=== PATIENT | female | born 1940 | race Caucasian/White ===

== ENCOUNTER 2016-07-15 08:45 | Outpatient (RCR) | payer MEDICARE ==
--- NOTE | 2016-07-02 14:33 | PT/OT/ST INITIAL EVALUATION ---
Department of Health and Human Services Form Approved [facility] Care Financing Administration OMB No. [id number] PLAN OF CARE/ASSESSMENT FOR OUTPATIENT REHABILITATION (Complete for Initial Claims Only) 1. LAST NAME Dave FIRST NAME Katya Vazquez 2. ACC # [id number] 3. HICN [id number] 4. TYPE: X PT 5. REFERRING PHYSICIAN 6. PRIMARY DX 7. SECONDARY DX 8. ONSET DATE 2-1/2 weeks ago 9. REFERRAL DATE 06/26/2016 10. SOC. DATE/TIME 06/30/2016 09:41 11. PRIOR LEVEL OF FUNCTION; PERTINENT HISTORY (Prior therapy results, reason for referral.) S: Prior to today's treatment, the patient did give consent to the evaluation and treatment this date. The patient is a 76-year-old female who began experiencing a nontraumatic onset of left scapular and upper back pain approximately 2-1/2 weeks ago. The patient notes the pain is constant, but is aggravated by sitting, looking down, especially when sitting at her computer, as well as standing. The patient does have difficulty being able to sleep secondary to this issue and staying asleep once she has been able to fall asleep. The patient has had issues with similar pain on her right side, but it is typically resolved by a massage. This issue has been addressed with some massage and use of heat, but has not resolved the issue at this time. The patient notes no numbness or tingling associated with this issue, but pain level is a 4/10. 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 She was participating in a daily walking program. She does also enjoy reading and sewing. Current level of function: The patient was recently seen in therapy for left trochanteric bursitis and that had limited her walking program. She is also limited in her sitting tolerance and ability to sit at the computer secondary to her scapular pain. Past medical history: Includes arthritis, atrial fibrillation, hypertension, and thyroid issues, as well as bilateral knee replacements. Medication list: The patient is taking ASA, Tylenol as needed, spironolactone, Metoprolol, Pantoprazole, atorvastatin, and cimetidine and fluticasone. Patient's goal: The patient's goal for physical therapy is to have no pain and improved flexibility and strength. 12. INITIAL ASSESSMENT/SAFETY PRECAUTIONS/MEDICAL COMPLICATIONS (Level of function at start of care. Be specific, use objective measures, list problems.) O: APPEARANCE AND OBSERVATION: Observation of the patient's posture reveals mild forward head positioning, decreased thoracic kyphosis and cervical lordosis. The patient demonstrates significant scapular winging and medial tilting with shoulder internal rotation and scapular abduction noted with upright posture. PALPATION: The patient has tenderness and significant muscle tightness with palpation of the bilateral mid to upper thoracic paraspinals, and cervical paraspinals, as well as upper trapezii, greatest on the left. She also has significant tenderness to palpation of the posterior ribs 6 and 7 on the left side. RANGE OF MOTION AND MOBILITY: The patient demonstrates hypomobility throughout the T4 throughout T10 segments. Right cervical rotation is 60 degrees, left is 49 degrees with tension noted in the thoracic musculature. Right cervical side bending 18 degrees, left 15 degrees. STRENGTH: Bilateral shoulder flexion, abduction, and internal rotation strength are 5/5, bilateral external rotation strength 4/5, bilateral rhomboid strength 3+/5, bilateral trapezii strength 3+/5. TODAY'S TREATMENT: Today's treatment consisted of initiating muscle energy technique to improve placement of left ribs 6 and 7, manual therapy to address muscle tightness and hypomobility throughout the thoracic spine. The PT also initiated the patient on upper back strengthening and cervical and thoracic spine stretching program and she was issued a written home exercise program. The patient was also educated by this PT on the current findings, as well as the plan for treatment and she was agreeable to this treatment plan. 13. 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 The patient demonstrates mild shoulder and significant upper back muscular weakness, as well as hypomobility throughout the thoracic spine and decreased range of motion in the cervical spine. PROGNOSIS: The patient would benefit from physical therapy and does have a good therapy outcome with regular attendance and compliance with her home exercise program. FUNCTIONAL LIMITATION: The patient does have a 26% disability rating on the Modified Oswestry pain disability questionnaire which was for modified for the thoracic spine. SHORT TERM GOALS X2 WEEKS: 1. The patient will report a 50% decrease in left scapular and thoracic spine pain. 2. The patient will improve left cervical rotation to be equal to the right. 3. The patient will improve bilateral shoulder external rotation strength to be 5/5 and bilateral rhomboid and lower trapezius strength to be a minimum of 4/5 to improve stabilization and support to the upper back and scapula. 4. The patient will be Independent and compliant with her home exercise program. 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 The patient will report being able to return to a walking program without being limited due to scapular pain. 2. The patient will have normalized mobility throughout the thoracic spine. 3. The patient will improve her modified Oswestry pain disability questionnaire by a minimum of 10%. As stated prior, the diagnosis, prognosis, risks and expected outcome were discussed with the patient and she is agreeable with to today's plan of care. PLAN: Plan to see this patient 3 times per week for 4 week. Therapeutic interventions will include modalities if needed to address pain and muscle tightness, therapeutic exercise with emphasis on stretching, stabilization and strengthening exercises, neuromuscular reeducation, manual therapy to improve muscle mobility and fine mobility, and advancement of a home exercise program. Therapeutic activities including functional training with body mechanics will also be included. Thank you for the referral of this patient. 14. FUNCTIONAL LEVEL (End of claim period) 15. PHYSICIAN SIGNATURE ? ON FILE OR ENTER HERE: 16. DATE: I certify the need for these services furnished under this plan of care and if for partial hospitalization. 17. CERTIFICATION FROM THROUGH FORM
[~2016-07-15 08:45] MED LIST: AC500T PO; ASPI-345 PO; ATOR40TA2 PO; CALC-51 PO; CHOL400T3 PO; CYAN1TAB26 PO; DICL100G29 TOP; ESTR1PAT34 TD; GBPN100C PO; GLUC1TAB8 PO; IBUP100T9 PO; INDA1.25 PO; LEVO50TA PO; METO50TA7 PO; MULT-301 PO; OMG1KC PO; PANT40TA3 PO; PROG100C6 PO; RANI150C PO; SIMV40TA2 PO; SPRN25T PO
== END 2016-08-07 09:22 | disposition home or self-care (01) ==
LOC: PT 08:45
PROVIDERS: ATTEND Family Medicine
DX: M54.6 Pain in thoracic spine (principal); M25.512 Pain in left shoulder
CPT/HCPCS: 97001; 97110; 97140; 97530; G8981; G8982